=== PATIENT | male | born 2000 | race Caucasian/White ===

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

== ENCOUNTER 2020-06-23 16:52 | Emergency (ER) | payer OTHER ==
[~2020-06-23] VITALS: Ht 180.3 cm; Wt 85.8 kg
[2020-06-23 16:52] VITALS: BP 125/71
[2020-06-23] MEDS ORDERED: AUGM875T28 PO (17:22)
== END 2020-06-23 17:34 | disposition home or self-care (01) ==
LOC: M ED 16:52
DX: S91.351A Open bite, right foot, initial encounter (principal); W54.0XXA Bitten by dog, initial encounter; Y92.009 Unspecified place in unspecified non-institutional (private) residence as the place of occurrence of the external cause; Y93.89 Activity, other specified; Y99.8 Other external cause status